=== PATIENT | male | born 1960 | race Caucasian/White ===

== ENCOUNTER 2021-09-07 11:58 | Outpatient (REF) | payer OTHER, SELFPAY ==
--- NOTE | ~2021-09-07 | XR_ITS ---
EXAMINATION: XR shoulder RT min 2V CLINICAL INFORMATION: Reason for Exam RT SHOULDER PAIN COMPARISON: None TECHNIQUE: Four views of the shoulder. XR/XR shoulder RT min 2V FINDINGS/IMPRESSION: No acute fracture or dislocation. Moderate to advanced degenerative changes of the acromioclavicular joint with loss of joint space and degenerative spurring. Mild degenerative changes of the glenohumeral joint with degenerative spurring. Calcification is noted in the subacromial space which may reflect sequelae of calcific tendinitis. Soft tissues are unremarkable. Median sternotomy wires and mediastinal surgical clips. Right chest wall generator device with leads partially imaged.
== END 2021-09-07 11:59 | disposition home or self-care (01) ==
LOC: HO.XRAY 11:58
PROVIDERS: PCP Internal Medicine; Visit Provider Internal Medicine
DX: M25.511 Pain in right shoulder (principal)
CPT/HCPCS: 73030

== ENCOUNTER 2021-10-14 11:19 | Outpatient (REF) | payer OTHER, SELFPAY ==
--- NOTE | ~2021-10-14 | XR_ITS ---
EXAMINATION: XR CHEST CLINICAL INFORMATION: Cough and shortness of breath. COMPARISON: Previous chest x-ray most recent November 2011 TECHNIQUE: 2 views of the chest were obtained. FINDINGS: The cardiac silhouette is slightly enlarged. There is a right subclavian AICD. There are median sternotomy wires, coronary artery stent and post-CABG changes. There is question of increased hilar markings. The lungs are otherwise clear. There is no pleural effusion. The bony structures are unremarkable. XR/XR chest 2V IMPRESSION: Slightly enlarged cardiac silhouette. Increased hilar markings questionable for pulmonary venous redistribution or airways disease.
[2021-10-14 12:00] LABS: MANUAL DIFF FLAG NO
[2021-10-14 13:02] LABS: Influenza A PCR NEGATIVE (Negative); Influenza B PCR NEGATIVE (Negative); Resp Syncy Virus RNA Qual PCR NEGATIVE (Negative); SARS COV2 PCR INHOUSE NEGATIVE (Negative)
[2021-10-14 13:16] LABS: Basophils Percent Auto 0.5 % (0-2); Eosinophils Percent Auto 0.5 % (0-4); Hematocrit 44.7 % (42.0-52.0); Hemoglobin 14.5 g/dl (14.0-18.0); Imm Gran Abs Auto 0.02 X10*3/uL (0.00-0.03); Imm Gran Pct Auto 0.3 % (0.0-0.4); Lymphocytes Absolute Auto 2.3 X10*3/uL (1.2-4.9); Lymphocytes Percent Auto 31.2 % (20-40); Mean Corpuscular HGB Conc 32.4 g/dl (31.0-36.0); Mean Corpuscular Hemoglobin 28.7 pg (27.0-33.0); Mean Corpuscular Volume 88.5 fL (80.0-98.0); Mean Platelet Volume 11.4 fL (9.4-12.4); Monocytes Absolute Auto 0.7 X10*3/uL (0.1-1.2); Monocytes Percent Auto 9.1 % (2-11); Neutrophils Absolute Auto 4.3 x10*3/uL (2.0-8.3); Neutrophils Percent Auto 58.4 % (45-73); Platelet Count 173 X10*3/uL (160-400); Red Blood Count 5.05 X10*6/uL (4.60-5.80); Red Cell Distribution Width 13.6 % (11.0-16.0); White Blood Count 7.4 X10*3/uL (4.8-10.8)
[2021-10-14 13:20] LABS: D Dimer High Sensitivity 668 NG/ML
[2021-10-14 13:34] LABS: B Type Natriuretic Peptide 483 pg/mL (<100); Troponin-I High Sensitivity 17.7 ng/L (<3.5-35.0)
[2021-10-14 13:47] LABS: Alanine Aminotransferase 80 U/L (0-40); Albumin Level 3.8 g/dL (3.5-5.0); Alkaline Phosphatase 78 U/L (39-117); Anion Gap 18 (12-20); Aspartate Amino Transferase 64 U/L (5-37); Bilirubin Total 0.8 mg/dL (0.0-1.0); Blood Urea Nitrogen 12 mg/dL (9-16); C Reactive Protein 0.66 mg/dL (< or = 0.50); Calcium 9.2 mg/dL (8.4-10.2); Carbon Dioxide 21 mmol/L (22-29); Chloride 105 mmol/L (96-108); Estimated Glomerular Filt Rate > 60; Glucose Random 157 mg/dL (60-115); Potassium 4.6 mmol/L (3.3-5.1); Sodium 139 mmol/L (135-145)
[2021-10-14 14:15] LABS: Estimated Average Glucose 217 mg/dL; Hemoglobin A1c % 9.2 %
== END 2021-10-14 11:20 | disposition home or self-care (01) ==
LOC: HO.LAB 11:19
PROVIDERS: PCP Internal Medicine; Visit Provider Internal Medicine
DX: R06.02 Shortness of breath (principal); R05.9 Cough, unspecified; I42.9 Cardiomyopathy, unspecified; E11.9 Type 2 diabetes mellitus without complications; Z79.4 Long term (current) use of insulin; Z20.822 Contact with and (suspected) exposure to COVID-19
CPT/HCPCS: 0241U; 71046; 80053; 83036; 83880; 84484; 85025; 85379; 86140

== ENCOUNTER 2022-03-20 12:00 | Outpatient (REF) | payer OTHER, SELFPAY ==
[2022-03-20 13:41] LABS: MANUAL DIFF FLAG NO
[2022-03-20 13:49] LABS: Basophils Percent Auto 0.4 % (0-2); Eosinophils Absolute Auto 0.1 X10*3/uL (0.0-0.4); Eosinophils Percent Auto 1.3 % (0-4); Hematocrit 43.6 % (42.0-52.0); Hemoglobin 14.9 g/dl (14.0-18.0); Imm Gran Abs Auto 0.03 X10*3/uL (0.00-0.03); Imm Gran Pct Auto 0.4 % (0.0-0.4); Lymphocytes Percent Auto 24.1 % (20-40); Mean Corpuscular HGB Conc 34.2 g/dl (31.0-36.0); Mean Corpuscular Hemoglobin 28.8 pg (27.0-33.0); Mean Corpuscular Volume 84.2 fL (80.0-98.0); Mean Platelet Volume 11.5 fL (9.4-12.4); Monocytes Absolute Auto 0.8 X10*3/uL (0.1-1.2); Monocytes Percent Auto 9.4 % (2-11); Neutrophils Absolute Auto 5.4 x10*3/uL (2.0-8.3); Neutrophils Percent Auto 64.4 % (45-73); Platelet Count 143 X10*3/uL (160-400); Red Blood Count 5.18 X10*6/uL (4.60-5.80); Red Cell Distribution Width 13.7 % (11.0-16.0); White Blood Count 8.3 X10*3/uL (4.8-10.8)
[2022-03-20 13:54] LABS: Appearance Urine Clear; Color Urine Yellow; Glucose Urine UA >=1000 mg/dL (Negative); Leukocyte Esterase Urine Negative (Negative); Nitrite Urine Negative (Negative); PH 6.5 (5.0-8.0); Specific Gravity - Urine 1.025 (1.005-1.025); Urine Blood Small (1+) (Negative); Urine Ketones Negative (Negative); Urine Protein 300 (3+) mg/dL (Neg-Trace)
[2022-03-20 13:59] LABS: Bacteria Urine None Seen (None Seen); Hyaline Casts Urine 0-2 /LPF (0-2); Squamous Epithelial Cell Urine 0-2 /HPF (0-2); WBC Urine 0-5 /HPF (0-5)
[2022-03-20 14:06] LABS: Alanine Aminotransferase 24 U/L (0-40); Albumin Level 3.9 g/dL (3.5-5.0); Alkaline Phosphatase 70 U/L (39-117); Anion Gap 16 (12-20); Aspartate Amino Transferase 20 U/L (5-37); Bilirubin Total 0.8 mg/dL (0.0-1.0); Blood Urea Nitrogen 10 mg/dL (9-16); Calcium 9.2 mg/dL (8.4-10.2); Carbon Dioxide 24 mmol/L (22-29); Chloride 100 mmol/L (96-108); Estimated Glomerular Filt Rate > 60; Glucose Random 307 mg/dL (60-115); Potassium 4.6 mmol/L (3.3-5.1); Sodium 135 mmol/L (135-145); Total Protein 7.2 g/dL (6.5-8.0)
[2022-03-20 14:18] LABS: Estimated Average Glucose 226 mg/dL; Hemoglobin A1c % 9.5 %
[2022-03-20 14:42] LABS: Creatinine Urine 61.32 mg/dL
[2022-03-20 15:18] LABS: Microalbum/Creatinine Ratio Ur 3116.4 ug/mg cr
== END 2022-03-20 12:01 | disposition home or self-care (01) ==
LOC: HO.10HDL 12:00
PROVIDERS: Visit Provider Internal Medicine
DX: R30.0 Dysuria (principal); E11.9 Type 2 diabetes mellitus without complications; G62.9 Polyneuropathy, unspecified; Z79.4 Long term (current) use of insulin
CPT/HCPCS: 36415; 80053; 81001; 82043; 83036; 85025; 87086

== ENCOUNTER 2022-04-28 17:14 | Emergency (ER) | payer OTHER, SELFPAY ==
[2022-04-28 19:05] VITALS: BP 135/85; PULSE 110; RESP 23; TEMP 36.7; O2SAT 99; BMI 25.4
[2022-04-28 20:40] LABS: COVID-19 Test Negative (Negative)
[2022-04-28 20:46] LABS: Alanine Aminotransferase 24 U/L (0-40); Albumin Level 4.1 g/dL (3.5-5.0); Alkaline Phosphatase 75 U/L (39-117); Anion Gap 16 (12-20); Aspartate Amino Transferase 28 U/L (5-37); Bilirubin Total 0.9 mg/dL (0.0-1.0); Blood Urea Nitrogen 14 mg/dL (9-16); Calcium 9.8 mg/dL (8.4-10.2); Carbon Dioxide 24 mmol/L (22-29); Chloride 105 mmol/L (96-108); Creatinine Clr Calc Pharmacy 80.3; Estimated Glomerular Filt Rate > 60; Glucose Random 98 mg/dL (60-115); Potassium 4.5 mmol/L (3.3-5.1); Sodium 140 mmol/L (135-145); Total Protein 7.8 g/dL (6.5-8.0)
--- NOTE | 2022-04-28 22:41 | PC.NURSE ---
Patient leaving ED now. He states he has viewed all his results in the patient portal and will follow up with his PCP.
== END 2022-04-29 00:32 | disposition left against medical advice (07) ==
PROVIDERS: Emergency Provider Emergency Medicine; PCP Internal Medicine
DX: R06.02 Shortness of breath (principal); R05.9 Cough, unspecified; Z20.822 Contact with and (suspected) exposure to COVID-19; Z79.899 Other long term (current) drug therapy
CPT/HCPCS: 71046; 80053; 87635; 99281; 99283

== ENCOUNTER 2022-06-19 11:35 | Outpatient (REF) | payer OTHER, SELFPAY ==
[2022-06-19 13:41] LABS: Appearance Urine Clear; Color Urine Yellow; Glucose Urine UA 100 mg/dL (Negative); Leukocyte Esterase Urine Negative (Negative); Nitrite Urine Negative (Negative); PH 5.5 (5.0-9.0); Specific Gravity - Urine 1.015 (1.005-1.025); UMIC TRIGGER UACC YES; Urine Blood Small (1+) (Negative); Urine Ketones Negative (Negative); Urine Protein 100 (2+) mg/dL (Neg-Trace)
[2022-06-19 13:53] LABS: Bacteria Urine None Seen (None Seen); Hyaline Casts Urine 0-2 /LPF (0-2); RBC Urine 0-2 /HPF (0-2); Squamous Epithelial Cell Urine 0-2 /HPF (0-2); WBC Urine 0-5 /HPF (0-5)
[2022-06-19 14:07] LABS: Anion Gap 14 (12-20); Blood Urea Nitrogen 19 mg/dL (9-16); Calcium 9.7 mg/dL (8.4-10.2); Carbon Dioxide 27 mmol/L (22-29); Chloride 102 mmol/L (96-108); Estimated Glomerular Filt Rate > 60; Glucose Random 217 mg/dL (60-115); Potassium 4.4 mmol/L (3.3-5.1); Sodium 139 mmol/L (135-145)
[2022-06-19 14:10] LABS: Estimated Average Glucose 192 mg/dL; Hemoglobin A1c % 8.3 %
== END 2022-06-19 11:36 | disposition home or self-care (01) ==
LOC: HO.10HDL 11:35
PROVIDERS: Visit Provider Internal Medicine
DX: E11.22 Type 2 diabetes mellitus with diabetic chronic kidney disease (principal); N18.9 Chronic kidney disease, unspecified; I42.9 Cardiomyopathy, unspecified; R30.0 Dysuria
CPT/HCPCS: 36415; 80048; 81001; 83036; 87086

== ENCOUNTER 2024-04-09 10:31 | Day surgery (SDC) | payer MEDICARE, MEDICAID, SELFPAY ==
[2024-04-07 14:43] VITALS: BMI 26.3
[2024-04-07 15:16] VITALS: BMI 26.3
--- NOTE | 2024-04-08 08:50 | HO.ANESPROP2 ---
Documented by User: Indira Dudley NP 04/08/24 08:55 HPI - Anesthesia Eval Consult details Narrative: 63yo M for Colonoscopy Cardiac optimized. 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 s/p CABG x 3 2012. ICD in situ Anesthesia Pre-Procedure Meds Is the patient on any of the following meds?: GLP1/DPP4 PMFSH Past Medical History Medical History History of chemotherapy Hx of Hodgkin's disease Anxiety HIV (human immunodeficiency virus infection) (~1989) Diabetes Lipoma of neck Surgical History Surgical History History of cardiac defibrillator placement (~04/2012) Hx of appendectomy Hx of cholecystectomy Hx of CABG Hx of colonoscopy (~2013) Social History Social History Household Members: Significant Other Household Members Other:: mother Housing: House Are you a primary primary care sales representative to a significant other at home: Yes (mother) Do you presently have visiting nurse or other home services: No Patient Tobacco Use Status: Former Tobacco user Tobacco use type: Cigarette Smoked in Last 30 Days: No Use of substances other than those prescribed or required for medical reasons: No Have you been hit, kicked, punched, or otherwise hurt by someone within the past year? If so, by whom?: No Advance Directives: No Advance Directives Information Provided: Yes Advance Directives on File: No Recently lost weight without trying: No Nutrition Risks: No Nutritional Risk Poor oral hygiene: No Meds Allergies Allergy/AdvReac Type Severity Reaction Status Date / Time efavirenz [From SUSTIVA] Allergy Intermediate RASH Verified 04/09/24 10:45 Shellfish AdvReac Mild VOMITING Uncoded 04/07/24 15:15 Home Medications ?Medication ?Instructions ?Recorded ?Confirmed ?Last Taken ?Type alprazolam 0.25 mg tablet 0.5 mg PO QID PRN Anxiety 04/07/24 04/07/24 Unknown History atorvastatin 20 mg tablet 20 mg PO DAILY 04/07/24 04/09/24 04/09/24 08:00 History digoxin 125 mcg (0.125 mg) tablet 125 mcg PO DAILY 04/07/24 04/07/24 Unknown History dolutegravir 50 mg-rilpivirine 25 1 tab PO DAILY 04/07/24 04/07/24 Unknown History mg tablet (Juluca) dulaglutide 1.5 mg/0.5 mL 1.5 mg subcut QWEEK 04/07/24 04/07/24 03/29/24 History subcutaneous pen injector (Trulicity) insulin glargine 100 unit/mL (3 35 unit subcut BEDTIME 04/07/24 04/07/24 Unknown History mL) subcutaneous pen (Lantus Solostar U-100 Insulin) insulin lispro 100 unit/mL unit subcut TID 04/07/24 Unknown History subcutaneous pen (Humalog KwikPen (U-100) Insulin) metformin 1,000 mg tablet 1,000 mg PO BID 04/07/24 04/07/24 Unknown History paroxetine HCl 20 mg tablet 20 mg PO DAILY 04/07/24 04/07/24 Unknown History paroxetine HCl 40 mg tablet 40 mg PO DAILY 04/07/24 04/07/24 Unknown History sacubitril 97 mg-valsartan 103 mg 1 tab PO BID 04/07/24 04/07/24 Unknown History tablet (Entresto) torsemide 10 mg tablet 10 mg PO DAILY 04/07/24 04/07/24 Unknown History Exam Height,Weight and Vital Signs: Height 5 ft 8 in Weight 78.471 kg Narrative Narrative: Diagnostic ImpressionECGECG 12-Lead ? 11:06:14 Ventricular Rate: 88 BPM Atrial Rate: 88 BPM P-R Interval: 192 ms QRS Duration: 108 ms Q-T Interval: 354 ms QTC Calculation(Bazett): 428 ms P [place]: 73 degrees R [place]: -33 degrees T [place]: 131 degrees Sinus rhythm with occasional Premature ventricular complexes Possible Left atrial enlargement Left axis deviation ST and T wave abnormality, consider lateral ischemia Abnormal ECG Confirmed by TANNER VELASCO MD ([id number]) on 03/07/2023 10:07:18 PM [place]: TANNER VELASCO MD ? Signed By: Tanner Velasco MD [place] ? ECG 12-Lead ? 11:06:14 Please click on pdf link to open report ? Signed By: Arley COURTNEY, Tanner Nieto EchoEchocardiogram - Complete ? 08:51:58 Summary The left ventricle is moderately dilated. The left ventricular wall thickness is mildly increased. The LV systolic function is severely reduced . The left ventricular ejection fraction is 15-20 %. There is severe global hypokinesis with regional variation. The mid to distal anterior, anteroseptal wall is akinetic . The apex is poorly visualized. Unable to assess diastolic function due to E/A fusion . The left atrium is mildly dilated. The aortic valve is trileaflet . The aortic valve appears mildly calcified. There is no aortic stenosis. There is trace aortic regurgitation. The mitral valve appears mildly thickened. There is moderate apical tethering of the both leaflets of the mitral valve. There is mild to moderate mitral regurgitation. The right ventricle is mildly dilated. Right ventricular systolic function is mildly to moderately reduced. A pacer/ICD wire is seen in the right ventricle. There is mild pulmonary hypertension. The pulmonary artery systolic pressure estimation is 40-45 mmHg. There is systolic blunting of pulmonary venous flow. The inferior vena cava is mildly dilated with poor inspiratory collapse consistent with elevated right atrial pressures. Comparison Comparison is made to the study of August 28, 2018. Left ventricular systolic function is worse since previous study. Left ventricular stroke volume is lower. Worsened mitral regurgitation since previous study. Signature ? Signed By: Michael COURTNEY, Conner Terry Assessment and Plan Assessment Anesthesia Assessment: Chart Reviewed Documented by User: Mary Gilmore MD 04/09/24 11:57 [facility] Past Medical History Medical History History of chemotherapy Hx of Hodgkin's disease Anxiety HIV (human immunodeficiency virus infection) (~1989) Diabetes Lipoma of neck Surgical History Surgical History History of cardiac defibrillator placement (~04/2012) Hx of appendectomy Hx of cholecystectomy Hx of CABG Hx of colonoscopy (~2013) History of Problems with Anesthesia: No Social History Social History Household Members: Significant Other Household Members Other:: mother Housing: House Are you a primary primary care sales representative to a significant other at home: Yes (mother) Do you presently have visiting nurse or other home services: No Patient Tobacco Use Status: Former Tobacco user Tobacco use type: Cigarette Smoked in Last 30 Days: No Use of substances other than those prescribed or required for medical reasons: No Have you been hit, kicked, punched, or otherwise hurt by someone within the past year? If so, by whom?: No Advance Directives: No Advance Directives Information Provided: Yes Advance Directives on File: No Recently lost weight without trying: No Nutrition Risks: No Nutritional Risk Poor oral hygiene: No Meds Allergies Allergy/AdvReac Type Severity Reaction Status Date / Time efavirenz [From SUSTIVA] Allergy Intermediate RASH Verified 04/09/24 10:45 Shellfish AdvReac Mild VOMITING Uncoded 04/07/24 15:15 Home Medications ?Medication ?Instructions ?Recorded ?Confirmed ?Last Taken ?Type alprazolam 0.25 mg tablet 0.5 mg PO QID PRN Anxiety 04/07/24 04/07/24 Unknown History atorvastatin 20 mg tablet 20 mg PO DAILY 04/07/24 04/09/24 04/09/24 08:00 History digoxin 125 mcg (0.125 mg) tablet 125 mcg PO DAILY 04/07/24 04/07/24 Unknown History dolutegravir 50 mg-rilpivirine 25 1 tab PO DAILY 04/07/24 04/07/24 Unknown History mg tablet (Juluca) dulaglutide 1.5 mg/0.5 mL 1.5 mg subcut QWEEK 04/07/24 04/07/24 03/29/24 History subcutaneous pen injector (Trulicity) insulin glargine 100 unit/mL (3 35 unit subcut BEDTIME 04/07/24 04/07/24 Unknown History mL) subcutaneous pen (Lantus Solostar U-100 Insulin) insulin lispro 100 unit/mL unit subcut TID 04/07/24 Unknown History subcutaneous pen (Humalog KwikPen (U-100) Insulin) metformin 1,000 mg tablet 1,000 mg PO BID 04/07/24 04/07/24 Unknown History paroxetine HCl 20 mg tablet 20 mg PO DAILY 04/07/24 04/07/24 Unknown History paroxetine HCl 40 mg tablet 40 mg PO DAILY 04/07/24 04/07/24 Unknown History sacubitril 97 mg-valsartan 103 mg 1 tab PO BID 04/07/24 04/07/24 Unknown History tablet (Entresto) torsemide 10 mg tablet 10 mg PO DAILY 04/07/24 04/07/24 Unknown History Exam Airway Mallampati Class: III TM Dist: >3cm Neck ROM: Full Loose/Missing/Broken Teeth: No Heart: RRR Lungs: CTA Assessment and Plan Assessment Anesthesia Assessment: Anesthesia Plan Discussed Final Anesthetic Review History of Problems with Anesthesia: No NPO: Yes ASA Class: IV Final Preanesthetic Review: Meds/Allgs Chart Reviewed, Consent Obtained/Reviewed and Anes Risks/Benef Reviewed Patient Risk: High Procedure Risk: Low Anesthetic Plan Anesthetic Plan: MAC: Disposition: Standard PACU
[2024-04-09 11:07] VITALS: BP 133/74; PULSE 95; RESP 18; TEMP 36.6; O2SAT 98; BMI 25.0
[2024-04-09] MEDS: Lactated Ringers 1,000 ML 50 ML IVCONT (11:15)
[2024-04-09 11:29] LABS: Glucose, Whole Blood 116 mg/dL (60-115)
[2024-04-09 12:39] VITALS: BP 93/45; PULSE 74; RESP 18; TEMP 36.3
--- NOTE | 2024-04-09 12:41 | P.BOP_ITS ---
Brief Operative Note Date of Service: 04/09/24 Pre-op diagnosis: Screening Post-op diagnosis: other (Colon polyp) Procedure: Colonoscopy to the cecum and TI with hot snare polypectomy Surgeon: Russel Caal MD Anesthesia: MAC Was an Communications Attendant used for this Procedure?: No Estimated blood loss (mL): 0 Pathology: other (A. Cecal polyp) Condition: stable Disposition: PACU
[2024-04-09 12:54] VITALS: BP 96/59; PULSE 77; RESP 18; TEMP 36.1; O2SAT 98
[2024-04-09 13:05] VITALS: BP 102/59; PULSE 75; RESP 16; O2SAT 98
--- NOTE | 2024-04-09 20:57 | OP_ITS ---
DATE OF SERVICE: 04/09/2024 SURGEON: Russel Caal MD INDICATIONS: The patient presents for evaluation of colorectal cancer screening. Full consent was obtained from him for this, including risks of bleeding and perforation. PREOPERATIVE DIAGNOSIS: Colorectal cancer screening. POSTOPERATIVE DIAGNOSIS: PROCEDURE PERFORMED: Colonoscopy to cecum and terminal ileum with hot snare polypectomy. ESTIMATED BLOOD LOSS: COMPLICATIONS: ANESTHESIA: Monitored anesthesia care. ASSISTANTS: SPECIMENS: POSTOPERATIVE DIAGNOSES: Colorectal cancer screening, colon polyp, diverticulosis, and internal hemorrhoids. DESCRIPTION OF PROCEDURE: Patient was placed in the left lateral decubitus position. The digital rectal exam revealed no abnormalities. The Olympus video pediatric colonoscope was entered into the rectum and advanced easily to the cecum. Once in the cecum, I did identify cecal pouch with appendiceal orifice and a normal-appearing ileocecal valve. The terminal ileum was cannulated and appeared normal. Scope was withdrawn back in the colon. The entire cecum was well visualized. In the cecum was an approximately 1.2 cm polyp, which was removed by hot snare polypectomy. It was recovered with the retrieval net and brought out of the patient. The colonoscope was advanced back into the rectum and to the cecum. The polypectomy site appeared clean, without any sign of residual polyp nor bleeding. The remainder of the cecum including the appendiceal orifice appeared normal. The scope was then slowly withdrawn assessing all mucosal surfaces carefully. Preparation was excellent. I did not visualize any other polyps, colitis, nor angiodysplasia. There was a mild amount of sigmoid diverticulosis. In the rectum, scope was retroflexed visualizing internal hemorrhoids, but no other pathology. The rectal mucosa appeared normal. Scope was straightened and withdrawn from the patient. He tolerated the procedure well and was returned to recovery area in stable condition. IMPRESSION: 1. Colon polyp. 2. Mild diverticulosis. 3. Internal hemorrhoids. PLAN: The results of the pathology will be checked. I would recommend a repeat colonoscopy in 5 years for further screening. He was advised not to use any aspirin or NSAIDs for 1 week. Of note, the anesthesiologist did turn off his defibrillator with a magnet during the cauterization for the polyp. He was advised to resume all of his usual medications today including his diabetes medications. Of note, does have a history of coronary artery bypass. He apparently is not taking any chronic blood thinners nor even aspirin. MD YOLIE Brown/JUD / [id number]
== END 2024-04-09 13:33 | disposition home or self-care (01) ==
PROVIDERS: PCP Internal Medicine; Visit Provider Internal Medicine
PROC: 0DJD8ZZ Inspection of Lower Intestinal Tract, Via Natural or Artificial Opening Endoscopic (ICD-10-PCS; CPT 45378; principal; 2024-04-09 11:30)
DX: Z12.11 Encounter for screening for malignant neoplasm of colon (principal); D12.0 Benign neoplasm of cecum; K57.30 Diverticulosis of large intestine without perforation or abscess without bleeding; K64.8 Other hemorrhoids; B20 Human immunodeficiency virus [HIV] disease; E11.9 Type 2 diabetes mellitus without complications; Z87.891 Personal history of nicotine dependence; Z79.02 Long term (current) use of antithrombotics/antiplatelets; Z79.85 Long-term (current) use of injectable non-insulin antidiabetic drugs; Z79.84 Long term (current) use of oral hypoglycemic drugs; Z79.4 Long term (current) use of insulin; Z79.899 Other long term (current) drug therapy
CPT/HCPCS: 45385; 82947; 88305; J2704